=== PATIENT | female | born 1955 | race Caucasian/White ===

== ENCOUNTER → 2017-02-04 | Outpatient (CLI) | payer OTHER ==
[~2017-02-04] MED LIST: DICLOFENAC SODI75 MG PO; LISINOPRIL10 MG PO; MULTIPLE VITAM1 EACH PO; PREDNISONE10 MG PO; VICODIN 5-3001 EACH PO
== END | disposition home or self-care (01) ==
LOC: RAD 01-20 11:00
DX: M19.072 Primary osteoarthritis, left ankle and foot (principal); M77.32 Calcaneal spur, left foot
CPT/HCPCS: 73700

== ENCOUNTER 2017-10-07 05:04 | Emergency (ER) | payer OTHER ==
[~2017-10-07] VITALS: Ht 165.1 cm; Wt 125.0 kg
[2017-10-07 05:50] LABS: HEMATOCRIT 38.4 % (36.0-46.0); HEMOGLOBIN 12.7 G/DL (11.9-15.5); MCH 30.7 PG (29.0-34.0); MCHC 33.1 G/DL (30.0-36.0); MCV 92.8 FL (83-99); PLATELET COUNT 210 K/uL (156-360); RBC DIS.WIDTH-CV 13.2 % (11.8-14.6); RBC DIS.WIDTH-SD 45.2 % (39-53); RED BLOOD COUNT 4.14 M/uL (3.80-5.20); WHITE BLOOD COUNT 4.3 K/uL (4.1-10.2)
[2017-10-07 06:01] LABS: CHLORIDE 110 mEq/L (99-109); SODIUM 141 mEq/L (136-147)
[2017-10-07 06:02] LABS: GLUCOSE 94 mg/dL (70-99)
[2017-10-07 06:06] LABS: CREATININE 0.7 mg/dL (0.6-1.3); GFR ESTIMATE (CALCULATED) > 59 mL/min/
[2017-10-07 06:07] LABS: UREA NITROGEN (BUN) 16 mg/dL (9-23)
[2017-10-07 06:11] LABS: TROP-I INTERPRETATION NEGATIVE; TROPONIN-I 0.02 ng/mL (0.0-0.30)
[2017-10-07 09:21] LABS: TROP-I INTERPRETATION NEGATIVE; TROPONIN-I < 0.01 ng/mL (0.0-0.30)
[2017-10-07] MEDS ORDERED: MELOXICAM7.5 MG PO (10:34)
[2017-10-07] MEDS ORDERED: OMEPRAZOLE20 MG PO (10:40)
[2017-10-07] MEDS ORDERED: DICLOFENAC SODI50 MG PO (10:43)
[2017-10-07 10:54] VITALS: BP 172/80
== END 2017-10-07 10:55 | disposition home or self-care (01) ==
LOC: EME 05:04
PROVIDERS: Physician Assistant
DX: K21.9 Gastro-esophageal reflux disease without esophagitis (principal); R07.89 Other chest pain; E66.01 Morbid (severe) obesity due to excess calories; Z68.42 Body mass index [BMI] 45.0-49.9, adult
CPT/HCPCS: 71046; 80048; 84484; 85027; 93005; 99281; 99284

== ENCOUNTER → 2017-11-07 | Outpatient (CLI) | payer OTHER ==
[~2017-11-07] VITALS: Ht 165.1 cm; Wt 120.2 kg
[~2017-11-07] MED LIST changes: +DICLOFENAC SODI50 MG PO; +MELOXICAM7.5 MG PO; +OMEPRAZOLE20 MG PO; +PRILOSEC20 MG PO
== END | disposition home or self-care (01) ==
LOC: AMB 09:20
DX: K21.0 Gastro-esophageal reflux disease with esophagitis (principal); K29.60 Other gastritis without bleeding; I10 Essential (primary) hypertension; E78.5 Hyperlipidemia, unspecified
CPT/HCPCS: 88305; 88342 TC; J2250; J3010

== ENCOUNTER 2017-12-01 08:42 | Emergency (ER) | payer OTHER ==
[~2017-12-01] VITALS: Ht 160 cm; Wt 122.2 kg
[2017-12-01 09:29] LABS: HEMATOCRIT 41.5 % (36.0-46.0); HEMOGLOBIN 13.9 G/DL (11.9-15.5); MCH 30.6 PG (29.0-34.0); MCHC 33.5 G/DL (30.0-36.0); MCV 91.4 FL (83-99); PLATELET COUNT 238 K/uL (156-360); RBC DIS.WIDTH-SD 47.4 % (39-53); RED BLOOD COUNT 4.54 M/uL (3.80-5.20); WHITE BLOOD COUNT 3.9 K/uL (4.1-10.2)
[2017-12-01 09:35] LABS: APPEARANCE CLEAR ((CLEAR)); BILIRUBIN NEGATIVE; BLOOD NEGATIVE; COLOR YELLOW ((YELLOW)); GLUCOSE (STRIP) NEGATIVE; KETONES NEGATIVE; LEUKOCYTES TRACE; NITRITE NEGATIVE; PROTEIN (STRIP) NEGATIVE; SPECIFIC GRAVITY 1.004 (1.000-1.030); UROBILINOGEN 0.2 MG/DL (0.2-1.0)
[2017-12-01 09:37] LABS: ALBUMIN 4.4 g/dL (3.2-4.8)
[2017-12-01 09:38] LABS: CHLORIDE 112 mEq/L (99-109); POTASSIUM 3.9 mEq/L (3.7-5.4); SODIUM 144 mEq/L (136-147)
[2017-12-01 09:40] LABS: GLUCOSE 92 mg/dL (70-99); TOTAL PROTEIN 7.9 g/dL (6.4-8.3)
[2017-12-01 09:40] LABS: BACTERIA RARE /HPF; EPITHELIAL CELLS 1+ /HPF; MUCUS NONE SEEN /LPF; RED BLOOD CELLS 0-5 /HPF (0-5); UCUL ADDED? NO; WHITE BLOOD CELLS 0-5 /HPF (0-5)
[2017-12-01 09:42] LABS: TOTAL BILIRUBIN 0.6 mg/dL (0.0-1.0)
[2017-12-01 09:43] LABS: ALKALINE PHOSPHATASE 77 IU/L (3-129)
[2017-12-01 09:44] LABS: CREATININE 0.9 mg/dL (0.6-1.3); GFR ESTIMATE (CALCULATED) > 59 mL/min/
[2017-12-01 09:45] LABS: AST (GOT) 23 IU/L (2-34); UREA NITROGEN (BUN) 13 mg/dL (9-23)
[2017-12-01 09:47] LABS: ALT (GPT) 26 IU/L (3-49); LIPASE 35 U/L (1.0-51.0)
[2017-12-01] MEDS ORDERED: NAPROSYN-EC500 MG PO (10:52)
[2017-12-01] MEDS ORDERED: FLEXERIL10 MG PO (10:52)
[2017-12-01 11:40] VITALS: BP 167/96
== END 2017-12-01 11:40 | disposition home or self-care (01) ==
LOC: EME 08:42
PROVIDERS: Nurse Practitioner Family
DX: S76.012A Strain of muscle, fascia and tendon of left hip, initial encounter (principal); R10.32 Left lower quadrant pain; K21.9 Gastro-esophageal reflux disease without esophagitis; F41.9 Anxiety disorder, unspecified; F32.9 Major depressive disorder, single episode, unspecified
CPT/HCPCS: 73502; 74177; 80053; 81003; 83690; 85027; 99281; 99284; J7030

== ENCOUNTER 2018-01-13 12:01 | Day surgery (SDC) | payer OTHER ==
[~2018-01-13] VITALS: Ht 162.6 cm; Wt 119.0 kg
[~2018-01-13 12:01] MED LIST changes: +FLEXERIL10 MG PO; +NAPROSYN-EC500 MG PO
[2018-01-13] MEDS ORDERED: VOLTAREN75 MG PO (13:16)
[2018-01-13 13:17] LABS: BASOPHIL (%) 0.1 % (0-1); EOSINOPHIL (%) 0.1 % (0-5); HEMATOCRIT 40.2 % (36.0-46.0); HEMOGLOBIN 13.3 G/DL (11.9-15.5); IMMATURE GRANULOCYTE (%) 0.3 % (0.0-0.7); LYMPHOCYTE (%) 9.8 % (15-42); LYMPHOCYTE COUNT 0.7 K/uL (1.0-2.8); MCH 30.6 PG (29.0-34.0); MCHC 33.1 G/DL (30.0-36.0); MCV 92.6 FL (83-99); MONOCYTE COUNT 0.4 K/uL (0-0.8); NEUTROPHIL (%) 84.7 % (45-76); NEUTROPHIL COUNT 6.1 K/uL (1.8-6.4); PLATELET COUNT 239 K/uL (156-360); RBC DIS.WIDTH-CV 13.9 % (11.8-14.6); RBC DIS.WIDTH-SD 47.6 % (39-53); RED BLOOD COUNT 4.34 M/uL (3.80-5.20); WHITE BLOOD COUNT 7.2 K/uL (4.1-10.2)
[2018-01-13] MEDS ORDERED: CALTRATE PLUS1 EACH PO (13:17)
[2018-01-13 13:41] LABS: CHLORIDE 107 MEQ/L (99-109); CREATININE 0.7 MG/DL (0.6-1.3); GFR ESTIMATE (CALCULATED) > 59 mL/min/; GLUCOSE 102 mg/dL (70-99); POTASSIUM 4.1 MEQ/L (3.7-5.4); SODIUM 141 MEQ/L (136-147); UREA NITROGEN (BUN) 16 mg/dL (9-23)
[2018-01-13 21:30] VITALS: BP 139/70
[2018-01-13 21:44] VITALS: BP 139/70
[2018-01-14 00:10] VITALS: BP 128/68
[2018-01-14 04:37] VITALS: BP 114/60
[2018-01-14 04:38] LABS: HDL CHOLESTEROL 42 MG/DL (Desirable>=50); LDL CHOLESTEROL 127 mg/dL (Desirable<100); NON-HDL CHOLESTEROL 160 mg/dL (Desirable<160); TOTAL CHOLESTEROL 202 mg/dL (Desirable<200); TRIGLYCERIDES 167 MG/DL (Normal: <150)
[2018-01-14 07:15] VITALS: BP 133/62
[2018-01-14 09:21] LABS: HEMOGLOBIN A1c (GLYCOHEMOGLOB) 5.3 % (Below 5.7)
[2018-01-14 11:12] VITALS: BP 142/71
[2018-01-14] MEDS ORDERED: ATORVASTATIN CA80 MG PO (12:26)
[2018-01-14] MEDS ORDERED: NITROSTAT0.4 MG SL (12:26)
[2018-01-14] MEDS ORDERED: LOPRESSOR25 MG PO (12:26)
[2018-01-14] MEDS ORDERED: ASPIR-LOW81 MG PO (12:26)
[2018-01-14] MEDS ORDERED: EFFIENT10 MG PO (12:26)
== END 2018-01-14 14:57 | disposition home or self-care (01) ==
LOC: CATH 12:01 → 2SOUTH 15:31 → ENRESERV 15:33 → 4EAST 21:36
PROVIDERS: Internal Medicine Cardiovascular Disease
DX: I25.10 Atherosclerotic heart disease of native coronary artery without angina pectoris (principal); E66.01 Morbid (severe) obesity due to excess calories; Z68.42 Body mass index [BMI] 45.0-49.9, adult; I10 Essential (primary) hypertension; E78.5 Hyperlipidemia, unspecified; K21.9 Gastro-esophageal reflux disease without esophagitis
CPT/HCPCS: 80048; 80061; 83036; 85025; 85347; 93005; C1725; C1769; C1874; C1887; G0378; J1644; J2250; J3010

== ENCOUNTER 2018-03-09 11:50 | Day surgery (SDC) | payer OTHER ==
[~2018-03-09 11:50] MED LIST changes: +ASPIR-LOW81 MG PO; +ATORVASTATIN CA80 MG PO; +CALTRATE PLUS1 EACH PO; +EFFIENT10 MG PO; +LOPRESSOR25 MG PO; +NITROSTAT0.4 MG SL; +VOLTAREN75 MG PO
[2018-03-09] MEDS ORDERED: RANEXA500 MG PO (12:23)
[2018-03-09] MEDS ORDERED: TRAMADOL HCL50 MG PO (12:23)
[2018-03-09 12:52] LABS: HEMATOCRIT 38.8 % (36.0-46.0); HEMOGLOBIN 12.8 G/DL (11.9-15.5); MCH 30.8 PG (29.0-34.0); MCV 93.5 FL (83-99); PLATELET COUNT 210 K/uL (156-360); RBC DIS.WIDTH-CV 13.9 % (11.8-14.6); RBC DIS.WIDTH-SD 47.8 % (39-53); RED BLOOD COUNT 4.15 M/uL (3.80-5.20); WHITE BLOOD COUNT 4.4 K/uL (4.1-10.2)
[2018-03-09 13:14] LABS: CHLORIDE 107 MEQ/L (99-109); CREATININE 0.7 MG/DL (0.6-1.3); GFR ESTIMATE (CALCULATED) > 59 mL/min/; GLUCOSE 95 mg/dL (70-99); POTASSIUM 4.1 MEQ/L (3.7-5.4); SODIUM 140 MEQ/L (136-147); UREA NITROGEN (BUN) 17 mg/dL (9-23)
[2018-03-09 18:12] VITALS: BP 118/64
[2018-03-09 19:45] VITALS: BP 105/50
[2018-03-09 23:55] VITALS: BP 112/63
[2018-03-10 04:14] VITALS: BP 111/68
[2018-03-10 07:27] VITALS: BP 119/60
== END 2018-03-10 10:40 | disposition home or self-care (01) ==
LOC: CATH 11:50 → 4EAST 15:08 → ENRESERV 15:35 → EDPENDDIS 03-10 → ENPENDDIS 03-10 → 4EAST 03-10 10:40
PROVIDERS: Internal Medicine Cardiovascular Disease
PROC: 027034Z Dilation of Coronary Artery, One Artery with Drug-eluting Intraluminal Device, Percutaneous Approach (ICD-10-PCS; principal; 2018-03-09)
DX: I25.118 Atherosclerotic heart disease of native coronary artery with other forms of angina pectoris (principal); I10 Essential (primary) hypertension; K21.9 Gastro-esophageal reflux disease without esophagitis; E78.5 Hyperlipidemia, unspecified; M19.90 Unspecified osteoarthritis, unspecified site; Z82.49 Family history of ischemic heart disease and other diseases of the circulatory system; E66.01 Morbid (severe) obesity due to excess calories; Z68.41 Body mass index [BMI] 40.0-44.9, adult
CPT/HCPCS: 80048; 85027; 85347; 93005; C1725; C1769; C1874; C1887; G0378; J1644; J2250; J3010